=== PATIENT | male | born 1990 ===

== ENCOUNTER 2021-10-23 16:37 | Emergency (ER) | payer BC ==
[2021-10-23] MEDS ORDERED: Boostrix 0.5 ML (Tdap) VIAL (>/=7 yrs of age) ONE (17:25)
[2021-10-23] MEDS ORDERED: CEFAZOLIN 2 GM VIAL ONE (17:25)
[2021-10-23] MEDS ORDERED: Lidocaine 1% PF 5 ML VIAL ONE (18:47)
[2021-10-23] MEDS ORDERED: Lidocaine 2% PF 5 ML VIAL ONE (18:48)
[2021-10-23] MEDS ORDERED: Morphine 4 MG/ML VIAL ONE (20:48)
== END 2021-10-23 22:23 | disposition home or self-care (01) ==
LOC: ERS 16:37
DX: S02.5XXA Fracture of tooth (traumatic), initial encounter for closed fracture (principal); S02.19XA Other fracture of base of skull, initial encounter for closed fracture; S62.307A Unspecified fracture of fifth metacarpal bone, left hand, initial encounter for closed fracture; S01.511A Laceration without foreign body of lip, initial encounter; V29.9XXA Motorcycle rider (driver) (passenger) injured in unspecified traffic accident, initial encounter
CPT/HCPCS: 29125; 40650; 70450; 70486; 72125; 90471; 90715; 93005; 96365; 96366; 96375; J0690; J2001; J2270